=== PATIENT | male | born 1940 | race Caucasian/White ===

== ENCOUNTER → 2018-07-06 | Day surgery (SDC) | payer MEDICARE, OTHER ==
[~2018-07-06] MED LIST: AMLODIPINE BESYL5 MG PO; ASPIRIN EC81 MG PO; FENTANYL CITRATE/PF 100MCG/2 ML INJ ONE; METOPROLOL; MIDAZOLAM HCL 2 MG/2 ML VIAL ONE; PRAVASTATIN SOD20 MG PO; PROPOFOL IV EMULSION 10 MG/ML 50 ML VIAL ONE; RAPAFLO4 MG PO
[2018-07-06 14:30] VITALS: BP 126/71
== END | disposition home or self-care (01) ==
LOC: OR 07:29
PROVIDERS: ATTEND Internal Medicine Gastroenterology
DX: Z12.11 Encounter for screening for malignant neoplasm of colon (principal); D12.5 Benign neoplasm of sigmoid colon; D12.8 Benign neoplasm of rectum; Z85.038 Personal history of other malignant neoplasm of large intestine; K64.8 Other hemorrhoids; K57.30 Diverticulosis of large intestine without perforation or abscess without bleeding; I10 Essential (primary) hypertension; I42.9 Cardiomyopathy, unspecified; J44.9 Chronic obstructive pulmonary disease, unspecified; R01.1 Cardiac murmur, unspecified; Z88.0 Allergy status to penicillin; Z79.82 Long term (current) use of aspirin; Z85.828 Personal history of other malignant neoplasm of skin; Z95.0 Presence of cardiac pacemaker; Z86.012 Personal history of benign carcinoid tumor; Z87.891 Personal history of nicotine dependence
CPT/HCPCS: 45384; 88305; J2250; 45378

== ENCOUNTER 2024-03-28 13:02 | Inpatient (IN) | payer MEDICARE, OTHER ==
[~2024-03-28] VITALS: Ht 170.2 cm; Wt 66.7 kg
[2024-03-28] VITALS (7 sets, daily range): BP systolic 127–152; BP diastolic 54–89; PULSE 83–117; RESP 18–20; TEMP 98.2–99.6; O2SAT 99–100
[~2024-03-28 13:02] MED LIST changes: -FENTANYL CITRATE/PF 100MCG/2 ML INJ ONE; -MIDAZOLAM HCL 2 MG/2 ML VIAL ONE; -PROPOFOL IV EMULSION 10 MG/ML 50 ML VIAL ONE
[2024-03-28 13:46] LABS: BASOPHILS % 0.1 % (0.0-1.0); EOSINOPHILS % 0.1 % (0.0-6.0); LYMPHOCYTES # (AUTO) 0.8 (1.0-3.2); LYMPHOCYTES % 9.2 % (18.0-39.1); MEAN CORPUSCULAR HEMOGLOBIN 30.1 pg (28-32); MEAN CORPUSCULAR HGB CONC 33.3 g/dL (31-35); MEAN CORPUSCULAR VOLUME 90.3 fL (81-99); MONOCYTES # (AUTO) 0.8 (0.2-0.8); MONOCYTES % 9.3 % (4.4-11.3); NEUTROPHILS # (AUTO) 6.8 (2.1-6.9); NEUTROPHILS % 81.1 % (38.7-80.0); PLATELET COUNT 200 x10e3/uL (140-360); RED BLOOD COUNT 4.65 x10e6/uL (4.3-5.7); RED CELL DISTRIBUTION WIDTH 12.9 % (11.7-14.4)
[2024-03-28 14:06] LABS: ALBUMIN 3.8 g/dL (3.5-5.0); ALBUMIN/GLOBULIN RATIO 1.1 (0.8-2.0); ANION GAP 14.3 mmol/L (8-16); BILIRUBIN,TOTAL 0.8 mg/dL (0.2-1.2); CALCIUM 9.2 mg/dL (8.4-10.2); CREATININE, SERUM 1.18 mg/dL (0.72-1.25); POTASSIUM 4.3 mmol/L (3.5-5.1); TOTAL PROTEIN 7.4 g/dL (6.5-8.1)
[2024-03-28] MEDS: SODIUM CHLORIDE 0.9% 1000ML 1,000 ML IV STA (14:10)
[2024-03-28 14:12] LABS: TROPONIN I 0.026 ng/mL (0-0.300)
[2024-03-28] MEDS: SODIUM CHLORIDE 0.9% 1000ML 1,000 ML IV SCH (18:05)
[2024-03-28] MEDS ORDERED: METOPROLOL TARTRATE INJ 1 MG/ML VIAL IV PRN (20:15)
[2024-03-28] MEDS ORDERED: ALBUTEROL/IPRATROPIUM 3 ML NEB NEB PRN (20:15)
[2024-03-28] MEDS ORDERED: ONDANSETRON HCL INJ 2MG/ML 2ML 2 MG/ML VIAL IV PRN (20:15)
[2024-03-28] MEDS ORDERED: SIMETHICONE 80 MG CHEW PO PRN (20:15)
[2024-03-28] MEDS ORDERED: DOCUSATE SODIUM 100 MG CAP PO PRN (20:15)
[2024-03-28 20:20] LABS: CHOL/HDL RATIO 3.3 (3.9-4.7)
[2024-03-28] MEDS: CYCLOBENZAPRINE HCL 10 MG TAB PO SCH (21:01)
[2024-03-28] MEDS: TRAMADOL HCL 50 MG TAB PO PRN (22:49)
[2024-03-29 02:54] VITALS: BP 129/75; PULSE 105; RESP 18; TEMP 100.2; O2SAT 97
[2024-03-29 05:49] LABS: BASOPHILS % 0.1 % (0.0-1.0); EOSINOPHILS # (AUTO) 0.1 (0.0-0.4); EOSINOPHILS % 0.7 % (0.0-6.0); HEMATOCRIT 38.5 % (38.2-49.6); HEMOGLOBIN 12.6 g/dL (14.0-18.0); LYMPHOCYTES # (AUTO) 0.9 (1.0-3.2); LYMPHOCYTES % 10.7 % (18.0-39.1); MEAN CORPUSCULAR HEMOGLOBIN 29.7 pg (28-32); MEAN CORPUSCULAR HGB CONC 32.7 g/dL (31-35); MEAN CORPUSCULAR VOLUME 90.8 fL (81-99); MONOCYTES # (AUTO) 0.9 (0.2-0.8); MONOCYTES % 10.8 % (4.4-11.3); NEUTROPHILS # (AUTO) 6.2 (2.1-6.9); NEUTROPHILS % 77.3 % (38.7-80.0); PLATELET COUNT 200 x10e3/uL (140-360); RED BLOOD COUNT 4.24 x10e6/uL (4.3-5.7); RED CELL DISTRIBUTION WIDTH 12.6 % (11.7-14.4); WHITE BLOOD COUNT 8.04 x10e3/uL (4.8-10.8)
[2024-03-29 06:19] LABS: ALBUMIN 3.3 g/dL (3.5-5.0); ALBUMIN/GLOBULIN RATIO 1.1 (0.8-2.0); ANION GAP 12.8 mmol/L (8-16); BILIRUBIN,TOTAL 0.7 mg/dL (0.2-1.2); CALCIUM 8.1 mg/dL (8.4-10.2); CREATININE, SERUM 0.98 mg/dL (0.72-1.25); POTASSIUM 3.8 mmol/L (3.5-5.1); TOTAL PROTEIN 6.2 g/dL (6.5-8.1)
[2024-03-29 06:31] LABS: TROPONIN I 0.033 ng/mL (0-0.300)
[2024-03-29 08:00] VITALS: BP 153/83; PULSE 88; RESP 18; TEMP 98.2; O2SAT 100
[2024-03-29] MEDS: ASPIRIN 81 MG ENTERIC COATED PO SCH (08:40)
[2024-03-29] MEDS: AMLODIPINE BESYLATE 5 MG TAB PO SCH (08:40)
[2024-03-29 10:08] VITALS: BP 153/83; PULSE 88; RESP 18; TEMP 98.2; O2SAT 100
[2024-03-29 11:41] LABS: AMPHETAMINES SCREEN,URINE NEGATIVE (NEGATIVE); BENZODIAZEPINES SCREEN,URINE NEGATIVE (NEGATIVE); CANNABINOIDS SCREEN,URINE NEGATIVE (NEGATIVE); METHADONE SCREEN, URINE NEGATIVE (NEGATIVE); OPIATES SCREEN,URINE NEGATIVE (NEGATIVE); PHENCYCLIDINE SCREEN,URINE NEGATIVE (NEGATIVE)
[2024-03-29 12:00] VITALS: BP 148/89; PULSE 90; RESP 17; TEMP 97.8; O2SAT 98
[2024-03-29 14:04] LABS: CREATINE KINASE 81 IU/L (30-200)
[2024-03-29] MEDS ORDERED: SODIUM CHLORIDE 0.9% 100 ML ONE (14:51)
[2024-03-29] MEDS ORDERED: IOPAMIDOL 370 MG/ML 100 ML INFUS..BTL INJ ONE (14:51)
[2024-03-29 16:00] VITALS: BP 150/63; PULSE 98; RESP 18; TEMP 98.2; O2SAT 100
[2024-03-29 19:13] LABS: TROPONIN I < 0.030 ng/mL (0-0.300)
[2024-03-29 20:00] VITALS: BP 157/78; PULSE 94; RESP 20; TEMP 101; O2SAT 97
[2024-03-29] MEDS: ACETAMINOPHEN 325 MG TAB PO PRN (23:04)
[2024-03-30] VITALS (8 sets, daily range): BP systolic 117–158; BP diastolic 56–102; PULSE 88–98; RESP 17–20; TEMP 97.9–103; O2SAT 93–100
[2024-03-30 08:40] LABS: CLARITY,URINE CLEAR (CLEAR); COLOR,URINE YELLOW (YELLOW); PH,URINE 6 (5 - 7)
[2024-03-30 08:41] LABS: BILIRUBIN,URINE NEGATIVE (NEGATIVE); GLUCOSE, URINE NEGATIVE (NEGATIVE); KETONES,URINE NEGATIVE (NEGATIVE); LEUKOCYTE ESTERASE ,URINE NEGATIVE (NEGATIVE); NITRITE,URINE NEGATIVE (NEGATIVE); PROTEIN,URINE DIPSTICK NEGATIVE (NEGATIVE); RBC,URINE 0-5 /HPF (0-5); URINE UROBILINOGEN 0.2 mg/dL (0.2 - 1); WBC,URINE (MAN) 0-5 /HPF (0-5)
[2024-03-30 08:42] LABS: BACTERIA,URINE FEW /HPF; EPITHELIAL CELLS,URINE FEW /LPF
[2024-03-30] MEDS ORDERED: ONDANSETRON HCL 4 MG ORAL DISINTEGRATING TAB PO PRN (13:30)
[2024-03-30 16:07] LABS: ANION GAP 12.8 mmol/L (8-16); BILIRUBIN,TOTAL 0.4 mg/dL (0.2-1.2); CALCIUM 7.9 mg/dL (8.4-10.2); POTASSIUM 3.8 mmol/L (3.5-5.1); TOTAL PROTEIN 6.1 g/dL (6.5-8.1)
[2024-03-30] MEDS ORDERED: AMIODARONE HCL200 MG PO (16:24)
[2024-03-30 16:31] LABS: CREATININE, SERUM 1.12 mg/dL (0.72-1.25)
[2024-03-30] MEDS ORDERED: LEVOTHYROXINE75 MCG PO (16:36)
[2024-03-30] MEDS ORDERED: IOPAMIDOL 370 MG/ML 100 ML INFUS..BTL INJ ONE (16:46)
[2024-03-31 04:00] VITALS: BP 127/80; PULSE 86; RESP 18; TEMP 101; O2SAT 95
[2024-03-31 08:00] VITALS: BP 131/76; PULSE 67; RESP 17; TEMP 98.9; O2SAT 98
[2024-03-31 08:54] VITALS: BP 131/76; PULSE 67; RESP 17; TEMP 98; O2SAT 98
[2024-03-31] MEDS ORDERED: IOPAMIDOL 300 MG/ML 15ML VIAL IT ONE ×2 (11:03→11:04)
[2024-03-31] MEDS ORDERED: LIDOCAINE HCL 1% LOCAL INJ 20 ML VIAL ONE (11:04)
[2024-03-31] MEDS ORDERED: IOPAMIDOL 370 MG/ML 100 ML INFUS..BTL INJ ONE (11:04)
[2024-03-31] MEDS ORDERED: HYDROMORPHONE 2MG/ML IV PRN (11:15)
[2024-03-31] MEDS ORDERED: ZOLPIDEM TARTRATE 5 MG TAB PO PRN (11:15)
[2024-03-31] MEDS ORDERED: LACTATED RINGER'S 1,000 ML IV SCH (11:15)
[2024-03-31] MEDS ORDERED: PROMETHAZINE HCL (IM) 25 MG/ML VIAL IM PRN (11:15)
[2024-03-31] MEDS ORDERED: Morphine 10mg syringe 10 MG/ML INJ IM PRN (11:15)
[2024-03-31] MEDS ORDERED: ONDANSETRON HCL INJ 2MG/ML 2ML 2 MG/ML VIAL IV PRN (11:15)
[2024-03-31] MEDS ORDERED: ACETAMINOPHEN 325 MG TAB PO PRN (11:15)
[2024-03-31] MEDS ORDERED: MAGNESIUM/ALUMINUM/SIMETHICONE 30 ML UDC PO PRN (11:15)
[2024-03-31] MEDS ORDERED: OXYCODONE/ACETAMINOPHEN 5-325 1 EACH TABLET PO PRN (11:15)
[2024-03-31] MEDS ORDERED: CARISOPRODOL 350 MG TAB PO PRN (11:15)
[2024-03-31] MEDS ORDERED: HYDROCODON-ACE1 EA12 PO (11:24)
[2024-03-31 11:31] VITALS: BP 137/65; PULSE 90; RESP 17; TEMP 98.5; O2SAT 100
[2024-03-31] MEDS: AMIODARONE HCL 200 MG TAB PO SCH (13:34)
[2024-03-31] MEDS ORDERED: IOPAMIDOL 610MG/1ML 300 MG/ML VIAL IV ONE (14:10)
[2024-03-31 20:00] VITALS: BP 145/81; PULSE 100; RESP 18; TEMP 100.1; O2SAT 97
[2024-03-31] MEDS: TAMSULOSIN HCL 0.4 MG CAP PO SCH (21:06)
[2024-04-01] VITALS (9 sets, daily range): BP systolic 107–158; BP diastolic 54–98; PULSE 79–100; RESP 18–22; TEMP 98.1–100.2; O2SAT 95–100
[2024-04-01] MEDS: LEVOTHYROXINE SODIUM 75 MCG TAB PO SCH (05:24)
[2024-04-01] MEDS: METOPROLOL SUCCINATE 50 MG TAB XL PO SCH (08:17)
[2024-04-01 11:20] LABS: ANION GAP 11.8 mmol/L (8-16); CALCIUM 7.8 mg/dL (8.4-10.2); CREATININE, SERUM 0.83 mg/dL (0.72-1.25); POTASSIUM 3.8 mmol/L (3.5-5.1)
[2024-04-01 11:22] LABS: MAGNESIUM 1.6 MG/DL (1.3-2.1); PHOSPHORUS 2.5 MG/DL (2.3-4.7)
[2024-04-02] VITALS (10 sets, daily range): BP systolic 105–135; BP diastolic 56–85; PULSE 78–96; RESP 17–19; TEMP 98.2–98.8; O2SAT 94–100
[2024-04-02 11:22] LABS: ABG PCO2 26 mmHg (35-45); ABG PH 7.51 (7.35-7.45); ABG PO2 43 mmHg (80-105)
[2024-04-02 11:23] LABS: ABG HCO3 -2 mmol/L (22-26); ABG TCO2 20.9
[2024-04-02] MEDS: DOCUSATE SODIUM 100 MG CAP PO SCH (11:49)
[2024-04-02] MEDS: SENNA-S TABLET PO SCH (11:49)
[2024-04-02 12:30] LABS: BASOPHILS % 0.1 % (0.0-1.0); EOSINOPHILS # (AUTO) 0.4 (0.0-0.4); EOSINOPHILS % 3.6 % (0.0-6.0); HEMATOCRIT 35.4 % (38.2-49.6); HEMOGLOBIN 11.9 g/dL (14.0-18.0); LYMPHOCYTES # (AUTO) 0.6 (1.0-3.2); LYMPHOCYTES % 5.1 % (18.0-39.1); MEAN CORPUSCULAR HEMOGLOBIN 29.5 pg (28-32); MEAN CORPUSCULAR HGB CONC 33.6 g/dL (31-35); MEAN CORPUSCULAR VOLUME 87.6 fL (81-99); MONOCYTES # (AUTO) 1.2 (0.2-0.8); MONOCYTES % 9.5 % (4.4-11.3); NEUTROPHILS # (AUTO) 9.9 (2.1-6.9); NEUTROPHILS % 81.4 % (38.7-80.0); PLATELET COUNT 228 x10e3/uL (140-360); RED BLOOD COUNT 4.04 x10e6/uL (4.3-5.7); RED CELL DISTRIBUTION WIDTH 12.4 % (11.7-14.4); WHITE BLOOD COUNT 12.11 x10e3/uL (4.8-10.8)
[2024-04-02 13:27] LABS: CALCIUM 7.7 mg/dL (8.4-10.2); CREATININE, SERUM 0.79 mg/dL (0.72-1.25)
[2024-04-02] MEDS: SODIUM CHLORIDE 1 GM TAB PO SCH (14:07)
[2024-04-02] MEDS ORDERED: SENNA-S TABLET PO SCH (17:00)
[2024-04-02] MEDS ORDERED: SODIUM BICARBONATE 8.4% IV SCH (19:45)
[2024-04-02] MEDS ORDERED: SODIUM CHLORIDE 0.9% IV SCH (19:45)
[2024-04-02] MEDS ORDERED: SODIUM CHLORIDE 0.9% 500ML 500 ML ONE ×2 (20:15→20:38)
[2024-04-02] MEDS ORDERED: SODIUM BICARBONATE 8.4% SYRING 50 ML ONE (20:39)
[2024-04-02] MEDS ORDERED: SODIUM CHLORIDE 0.9% 1000ML 1,000 ML ONE (20:50)
[2024-04-02] MEDS: MELATONIN 3 MG TAB PO PRN (21:29)
[2024-04-02] MEDS: SODIUM BICARBONATE 8.4% IV SCH (21:51)
[2024-04-02] MEDS: SODIUM CHLORIDE 0.9% IV SCH (21:51)
[2024-04-03] VITALS (11 sets, daily range): BP systolic 117–128; BP diastolic 67–84; PULSE 80–98; RESP 18–22; TEMP 98–98.3; O2SAT 95–100
[2024-04-03 03:24] LABS: BASOPHILS % 0.1 % (0.0-1.0); EOSINOPHILS # (AUTO) 0.5 (0.0-0.4); EOSINOPHILS % 4.7 % (0.0-6.0); HEMATOCRIT 33.1 % (38.2-49.6); HEMOGLOBIN 11.3 g/dL (14.0-18.0); LYMPHOCYTES # (AUTO) 0.8 (1.0-3.2); LYMPHOCYTES % 7.6 % (18.0-39.1); MEAN CORPUSCULAR HEMOGLOBIN 29.8 pg (28-32); MEAN CORPUSCULAR HGB CONC 34.1 g/dL (31-35); MEAN CORPUSCULAR VOLUME 87.3 fL (81-99); MONOCYTES # (AUTO) 1.2 (0.2-0.8); MONOCYTES % 11.3 % (4.4-11.3); NEUTROPHILS # (AUTO) 8.1 (2.1-6.9); NEUTROPHILS % 75.8 % (38.7-80.0); PLATELET COUNT 237 x10e3/uL (140-360); RED BLOOD COUNT 3.79 x10e6/uL (4.3-5.7); RED CELL DISTRIBUTION WIDTH 12.2 % (11.7-14.4); WHITE BLOOD COUNT 10.63 x10e3/uL (4.8-10.8)
[2024-04-03 05:38] LABS: ANION GAP 9.7 mmol/L (8-16); CALCIUM 7.6 mg/dL (8.4-10.2); CREATININE, SERUM 0.73 mg/dL (0.72-1.25); POTASSIUM 3.7 mmol/L (3.5-5.1)
[2024-04-03] MEDS: SODIUM BICARBONATE 8.4% VIAL 50 ML in SODIUM CHLORIDE 0.9% 1000ML 1,000 ML IV SCH (14:21)
[2024-04-03] MEDS: MAGNESIUM HYDROXIDE 30 ML UDC PO PRN (15:11)
[2024-04-03] MEDS: SODIUM BICARBONATE 8.4% VIAL 100 ML in SODIUM CHLORIDE 0.45% 1,000 ML IV SCH (15:21)
[2024-04-04] VITALS (12 sets, daily range): BP systolic 99–167; BP diastolic 60–83; PULSE 76–92; RESP 16–20; TEMP 97–98.7; O2SAT 95–100
[2024-04-04 09:14] LABS: BASOPHILS % 0.3 % (0.0-1.0); EOSINOPHILS # (AUTO) 0.3 (0.0-0.4); EOSINOPHILS % 3.5 % (0.0-6.0); HEMATOCRIT 36.4 % (38.2-49.6); HEMOGLOBIN 12.2 g/dL (14.0-18.0); LYMPHOCYTES # (AUTO) 0.6 (1.0-3.2); LYMPHOCYTES % 6.3 % (18.0-39.1); MEAN CORPUSCULAR HEMOGLOBIN 29.5 pg (28-32); MEAN CORPUSCULAR HGB CONC 33.5 g/dL (31-35); MEAN CORPUSCULAR VOLUME 88.1 fL (81-99); MONOCYTES # (AUTO) 1.1 (0.2-0.8); MONOCYTES % 12.2 % (4.4-11.3); NEUTROPHILS # (AUTO) 7.1 (2.1-6.9); NEUTROPHILS % 77.1 % (38.7-80.0); PLATELET COUNT 294 x10e3/uL (140-360); RED BLOOD COUNT 4.13 x10e6/uL (4.3-5.7); RED CELL DISTRIBUTION WIDTH 12.2 % (11.7-14.4); WHITE BLOOD COUNT 9.24 x10e3/uL (4.8-10.8)
[2024-04-04 09:39] LABS: ANION GAP 11.3 mmol/L (8-16); CALCIUM 8.3 mg/dL (8.4-10.2); CREATININE, SERUM 0.7 mg/dL (0.72-1.25); POTASSIUM 4.3 mmol/L (3.5-5.1)
[2024-04-04] MEDS ORDERED: METHYLPREDNISOLONE SOD SUCC 125 MG/2ML VIAL IV SCH (21:00)
[2024-04-05] VITALS (10 sets, daily range): BP systolic 127–138; BP diastolic 62–72; PULSE 78–91; RESP 16–20; TEMP 97.1–98.9; O2SAT 97–100
[2024-04-05] MEDS ORDERED: PREDNISONE 10 MG TAB PO SCH (09:00)
[2024-04-05] MEDS: PREDNISONE 20 MG TAB PO SCH (09:49)
[2024-04-05 15:38] LABS: WEST NILE VIRUS IGG SERUM Positive (Negative)
[2024-04-05 15:39] LABS: WEST NILE VIRUS IGM SERUM Positive (Negative)
[2024-04-06] VITALS (8 sets, daily range): BP systolic 114–196; BP diastolic 61–174; PULSE 77–98; RESP 17–22; TEMP 97–97.9; O2SAT 98–100
[2024-04-06] MEDS: METOPROLOL TARTRATE INJ 1 MG/ML VIAL IV PRN (12:52)
[2024-04-07] MEDS ORDERED: PREDNISONE 10 MG TAB PO SCH (09:00)
== END 2024-04-06 17:55 | DRG 865 ==
LOC: ER 13:08 → ERHOLD 14:40 → MED/SURG2 17:07
PROVIDERS: ADMIT Internal Medicine; ATTEND Internal Medicine
PROC: B02B1ZZ Computerized Tomography (CT Scan) of Spinal Cord using Low Osmolar Contrast (ICD-10-PCS; 2024-03-31)
PROC: 4A033R1 Measurement of Arterial Saturation, Peripheral, Percutaneous Approach (ICD-10-PCS; principal; 2024-04-02)
DX: A92.30 West Nile virus infection, unspecified (principal); G93.41 Metabolic encephalopathy; I50.22 Chronic systolic (congestive) heart failure; G81.91 Hemiplegia, unspecified affecting right dominant side; N13.30 Unspecified hydronephrosis; E87.1 Hypo-osmolality and hyponatremia; M35.9 Systemic involvement of connective tissue, unspecified; R53.1 Weakness; R33.9 Retention of urine, unspecified; R09.02 Hypoxemia; I11.0 Hypertensive heart disease with heart failure; M48.02 Spinal stenosis, cervical region; M48.04 Spinal stenosis, thoracic region; M48.061 Spinal stenosis, lumbar region without neurogenic claudication; M51.16 Intervertebral disc disorders with radiculopathy, lumbar region; M47.26 Other spondylosis with radiculopathy, lumbar region; M25.78 Osteophyte, vertebrae; R47.81 Slurred speech; F03.90 Unspecified dementia, unspecified severity, without behavioral disturbance, psychotic disturbance, mood disturbance, and anxiety; R25.1 Tremor, unspecified; R62.7 Adult failure to thrive; Z68.23 Body mass index [BMI] 23.0-23.9, adult; E11.9 Type 2 diabetes mellitus without complications; K57.30 Diverticulosis of large intestine without perforation or abscess without bleeding; E03.9 Hypothyroidism, unspecified; Z86.73 Personal history of transient ischemic attack (TIA), and cerebral infarction without residual deficits; Z95.810 Presence of automatic (implantable) cardiac defibrillator; Z88.0 Allergy status to penicillin
CPT/HCPCS: 36415; 36600; 62302; 62303; 62304; 70450; 70496; 70498; 71045; 71046; 72126; 72129; 72132; 74177; 80048; 80053; 80061; 80307; 80320; 81001; 82140; 82550; 82805; 83735; 83880; 84100; 84295; 84484; 85025; 85379; 86039; 86140; 86789; 87040; 93005; 93971; 94799; 95819; 99252; 99284; J0696; J2001; J7030; J7040; J7050; J7512; Q9967

== ENCOUNTER 2024-11-09 16:50 | Emergency (ER) | payer MEDICARE, OTHER ==
[~2024-11-09] VITALS: Ht 170.2 cm; Wt 66.7 kg
[~2024-11-09 16:50] MED LIST changes: +AMIODARONE HCL200 MG PO; +HYDROCODON-ACE1 EA12 PO; +LEVOTHYROXINE75 MCG PO
[2024-11-09 17:35] LABS: CLARITY,URINE CLEAR (CLEAR); COLOR,URINE AMBER (YELLOW); PH,URINE 5.5 (5 - 7)
[2024-11-09 17:36] LABS: BASOPHILS % 0.2 % (0.0-1.0); BILIRUBIN,URINE LARGE (NEGATIVE); EOSINOPHILS % 0.2 % (0.0-6.0); GLUCOSE, URINE NEGATIVE (NEGATIVE); HEMATOCRIT 33.5 % (38.2-49.6); HEMOGLOBIN 11.5 g/dL (14.0-18.0); KETONES,URINE NEGATIVE (NEGATIVE); LEUKOCYTE ESTERASE ,URINE NEGATIVE (NEGATIVE); LYMPHOCYTES # (AUTO) 0.4 (1.0-3.2); LYMPHOCYTES % 3.3 % (18.0-39.1); MEAN CORPUSCULAR HEMOGLOBIN 28.8 pg (28-32); MEAN CORPUSCULAR HGB CONC 34.3 g/dL (31-35); MEAN CORPUSCULAR VOLUME 83.8 fL (81-99); MONOCYTES % 7.7 % (4.4-11.3); NEUTROPHILS # (AUTO) 11.1 (2.1-6.9); NITRITE,URINE NEGATIVE (NEGATIVE); PLATELET COUNT 422 x10e3/uL (140-360); PROTEIN,URINE DIPSTICK 1+ (NEGATIVE); RED CELL DISTRIBUTION WIDTH 14.2 % (11.7-14.4); URINE UROBILINOGEN 0.2 mg/dL (0.2 - 1)
[2024-11-09 17:49] LABS: AMORPHOUS SEDIMENT,URINE FEW; BACTERIA,URINE FEW /HPF; EPITHELIAL CELLS,URINE FEW /LPF; RBC,URINE 0-5 /HPF (0-5); WBC,URINE (MAN) 0-5 /HPF (0-5)
[2024-11-09 17:50] LABS: MUCUS,URINE FEW
[2024-11-09] MEDS: SODIUM CHLORIDE 0.9% 1000ML 1,000 ML IV STA (17:56)
[2024-11-09 18:05] LABS: ALBUMIN 2.4 g/dL (3.5-5.0); ALBUMIN/GLOBULIN RATIO 0.5 (0.8-2.0); ANION GAP 14.4 mmol/L (8-16); CALCIUM 8.6 mg/dL (8.4-10.2); CREATININE, SERUM 0.79 mg/dL (0.72-1.25); TOTAL PROTEIN 6.9 g/dL (6.5-8.1)
[2024-11-09 18:06] LABS: POTASSIUM 3.4 mmol/L (3.5-5.1)
[2024-11-09] MEDS ORDERED: IOPAMIDOL 370 MG/ML 100 ML INFUS..BTL INJ ONE (18:22)
[2024-11-09 23:18] VITALS: PULSE 78; RESP 15; TEMP 98.2
[2024-11-09 23:48] VITALS: BP 120/62; PULSE 78; RESP 15; TEMP 98.2; O2SAT 97
== END 2024-11-09 23:50 | disposition other institution (70) ==
LOC: ER 17:11
DX: R10.30 Lower abdominal pain, unspecified (principal); R17 Unspecified jaundice; R33.9 Retention of urine, unspecified; C25.9 Malignant neoplasm of pancreas, unspecified; I25.10 Atherosclerotic heart disease of native coronary artery without angina pectoris; I25.2 Old myocardial infarction; Z95.810 Presence of automatic (implantable) cardiac defibrillator
CPT/HCPCS: 36415; 74177; 80053; 81001; 83690; 85025; 99284; J7030; Q9967